=== PATIENT | male | born 1965 | race African-American/Black ===

== ENCOUNTER → 2019-07-24 | Outpatient (CLI) | payer OTHER ==
[2019-07-24 08:07] LABS: ABSOLUTE EOSINOPHILS # (AUTO) 0.2 10^3/uL (0.0-0.6); ABSOLUTE LYMPHOCYTES (AUTO) 1.5 10^3/uL (0.5-4.7); ABSOLUTE MONOCYTES (AUTO) 0.4 10^3/uL (0.1-1.4); ABSOLUTE NEUT (AUTO) 3.5 10^3/uL (1.7-8.2); BASOPHILS % (AUTO) 0.5 % (0-2); EOSINOPHILS % (AUTO) 4.1 % (0-6); HEMATOCRIT 42.7 % (37.9-51.0); HEMOGLOBIN 14.1 g/dL (13.5-17.0); LYMPHOCYTES % (AUTO) 25.9 % (13-45); MEAN CORPUSCULAR HEMOGLOBIN 27.8 pg (27.0-33.4); MEAN CORPUSCULAR HGB CONC 33.1 g/dL (32.0-36.0); MEAN CORPUSCULAR VOLUME 84 fl (80-97); MONOCYTES % (AUTO) 7.9 % (3-13); PLATELET COUNT 222 10^3/uL (150-450); RED BLOOD COUNT 5.08 10^6/uL (4.35-5.55); SEGMENTED NEUTROPHILS % (AUTO) 61.6 % (42-78); TOTAL CELLS COUNTED % (AUTO) 100 %; WHITE BLOOD COUNT 5.7 10^3/uL (4.0-10.5)
[2019-07-24 08:43] LABS: ALBUMIN 4.6 g/dL (3.5-5.0); ALKALINE PHOSPHATASE 68 U/L (38-126); ANION GAP 9 (5-19); ASPARTATE AMINO TRANSFERASE 22 U/L (17-59); BILIRUBIN,DIRECT 0.1 mg/dL (0.0-0.4); BILIRUBIN,TOTAL 1.3 mg/dL (0.2-1.3); BLOOD UREA NITROGEN 14 mg/dL (7-20); CARBON DIOXIDE 30 mmol/L (22-30); CHLORIDE 103 mmol/L (98-107); CHOLESTEROL 202.44 mg/dL (0-200); DIRECT LDL 146 mg/dL (<100); GLUCOSE 99 mg/dL (75-110); POTASSIUM 4.7 mmol/L (3.6-5.0); TOTAL PROTEIN 8.3 g/dL (6.3-8.2); TRIGLYCERIDES 112 mg/dL (<150); URIC ACID 6.3 mg/dL (3.5-8.5)
== END ==
LOC: CCC 07:11
DX: Z00.00 Encounter for general adult medical examination without abnormal findings (principal)
CPT/HCPCS: 36415; 80053; 80061; 83036; 84153; 84550; 85025

== ENCOUNTER 2020-07-14 17:53 | Emergency (ER) | payer OTHER ==
[2020-07-14 18:23] VITALS: BP 157/74
--- NOTE | 2020-07-14 18:27 | ER Document Report ---
ED Medical Screen (RME) - General Chief Complaint: Chest Pain > 30 Stated Complaint: chest pain Time Seen by Provider: 07/14/20 18:22 Primary Care Provider: SEEMA ELDRIDGE [Primary Care Provider] - Follow up as needed Mode of Arrival: Ambulatory Information source: Patient Notes: 55-year-old male presented to ED for complaint of chest pain that started on 10 July. He stated it lasted until Monday which was 4 days. He states on June 23 he got started on atorvastatin and he took that until Monday night. He did not take any or Monday and then his pain stopped on Monday. He states he called the clinic where he got the medications and they told him he needed to come to the emergency room and have his chest pain evaluated. They did tell him he should have come in that day to be evaluated. Patient is alert oriented respirations regular nonlabored speaking in full sentences at this time. I have greeted and performed a rapid initial assessment of this patient. A comprehensive ED assessment and evaluation of the patient, analysis of test results and completion of medical decision making process will be conducted by an additional ED providers. TRAVEL OUTSIDE OF THE [place] IN LAST 30 DAYS: No Physical Exam - Vital signs Vitals: Temp Pulse Resp BP Pulse Ox 98.4 F 70 16 157/74 H 98 07/14/20 18:22 07/14/20 18:22 07/14/20 18:22 07/14/20 18:22 07/14/20 18:22 Course - Vital Signs Vital signs: Temp Pulse Resp BP Pulse Ox 98.4 F 70 16 157/74 H 98 07/14/20 18:22 07/14/20 18:22 07/14/20 18:22 07/14/20 18:22 07/14/20 18:22 Doctor's Discharge - Discharge Referrals: SEEMA ELDRIDGE [Primary Care Provider] - Follow up as needed
--- NOTE | 2020-07-14 19:08 | RADIOLOGY REPORT (SQ) ---
EXAM DESCRIPTION: CHEST 2 VIEWS IMAGES COMPLETED DATE/TIME: 07/14/2020 6:57 pm REASON FOR STUDY: chest pain COMPARISON: None. EXAM PARAMETERS: NUMBER OF VIEWS: two views TECHNIQUE: Digital Frontal and Lateral radiographic views of the chest acquired. RADIATION DOSE: NA LIMITATIONS: none FINDINGS: LUNGS AND PLEURA: No opacities, masses or pneumothorax. No pleural effusion. MEDIASTINUM AND HILAR STRUCTURES: No masses or contour abnormalities. HEART AND VASCULAR STRUCTURES: Heart normal size. No evidence for failure. BONES: No acute findings. HARDWARE: None in the chest. OTHER: No other significant finding. IMPRESSION: 1. NO ACUTE RADIOGRAPHIC FINDING IN THE CHEST. TECHNICAL DOCUMENTATION: JOB ID: [id number] 2010 [employer]- All Rights Reserved Reading location - IP/workstation name: [email or web address]
[2020-07-14 19:21] LABS: ABSOLUTE EOSINOPHILS # (AUTO) 0.2 10^3/uL (0.0-0.6); ABSOLUTE LYMPHOCYTES (AUTO) 2.4 10^3/uL (0.5-4.7); ABSOLUTE MONOCYTES (AUTO) 0.6 10^3/uL (0.1-1.4); ABSOLUTE NEUT (AUTO) 4.7 10^3/uL (1.7-8.2); BASOPHILS % (AUTO) 0.3 % (0-2); EOSINOPHILS % (AUTO) 2.8 % (0-6); HEMOGLOBIN 13.2 g/dL (13.5-17.0); LYMPHOCYTES % (AUTO) 30.4 % (13-45); MEAN CORPUSCULAR HEMOGLOBIN 27.9 pg (27.0-33.4); MEAN CORPUSCULAR HGB CONC 33.1 g/dL (32.0-36.0); MEAN CORPUSCULAR VOLUME 84 fl (80-97); MONOCYTES % (AUTO) 7.1 % (3-13); PLATELET COUNT 244 10^3/uL (150-450); RED BLOOD COUNT 4.75 10^6/uL (4.35-5.55); SEGMENTED NEUTROPHILS % (AUTO) 59.4 % (42-78); TOTAL CELLS COUNTED % (AUTO) 100 %
[2020-07-14 19:36] LABS: ALBUMIN 4.6 g/dL (3.5-5.0); ALKALINE PHOSPHATASE 73 U/L (38-126); ANION GAP 9 (5-19); ASPARTATE AMINO TRANSFERASE 28 U/L (17-59); BILIRUBIN,DIRECT 0.1 mg/dL (0.0-0.4); BILIRUBIN,TOTAL 0.8 mg/dL (0.2-1.3); BLOOD UREA NITROGEN 19 mg/dL (7-20); CALCIUM 9.9 mg/dL (8.4-10.2); CARBON DIOXIDE 28 mmol/L (22-30); CHLORIDE 105 mmol/L (98-107); GLUCOSE 96 mg/dL (75-110); TOTAL PROTEIN 8.3 g/dL (6.3-8.2)
--- NOTE | 2020-07-15 01:20 | ER Document Report ---
ED General - General Chief Complaint: Chest Pain Stated Complaint: chest pain Time Seen by Provider: 07/14/20 18:22 Primary Care Provider: [facility] [Primary Care Provider] - Follow up as needed Mode of Arrival: Ambulatory Notes: 55-year-old male with hypertension hyperlipidemia presents with episodic chest pain last week that resolved 3 days ago. Patient says that for approximately 2 days he had intermittent left-sided nonradiating pressure-like chest pain associated with shortness of breath that lasted for few minutes to few hours and then resolved with intervention. Happened few times, thinks first time he was working outside. Has had absolutely no symptoms since Monday. Attempted to contact his clinic on Monday but did not get through till day of presentation a nd was told to go to ED. Patient denies any prior episodes, cardiac history, prior cardiac work-up, lower extremity edema, fever, cough, hemoptysis, DVT/PE/hypercoagulability history, drug use TRAVEL OUTSIDE OF THE [place] IN LAST 30 DAYS: No - Related Data Allergies/Adverse Reactions: prochlorperazine [From Compazine] Allergy (Verified 07/15/20 00:13) Past Medical History - General Information source: Patient - Social History Smoking Status: Never Smoker Frequency of alcohol use: Occasional Drug Abuse: None Family History: Reviewed & Not Pertinent Review of Systems - Review of Systems Notes: REVIEW OF SYSTEMS: CONSTITUTIONAL : Denies fever, chills, or sweats. EENT: Denies recent cold/sinus symptoms, denies throat pain CARDIOVASCULAR: - chest pain, -MARY RESPIRATORY: Denies cough, denies shortness of breath. GASTROINTESTINAL: Denies abdominal pain, nausea/vomiting. GENITOURINARY: Denies difficulty urinating, painful urination. FEMALE GENITOURINARY: Denies abnormal vaginal bleeding, vaginal discharge. MUSCULOSKELETAL: Denies neck pain, back pain. SKIN: Denies rash or skin lesions. HEMATOLOGIC : Denies easy bruising or bleeding. LYMPHATIC: Denies swollen, enlarged glands. NEUROLOGICAL: Denies headache, denies change in gait. PSYCHIATRIC: Denies anxiety or stress or depression. Physical Exam - Vital signs Vitals: Temp Pulse Resp BP Pulse Ox 98.4 F 70 16 157/74 H 98 07/14/20 18:22 07/14/20 18:22 07/14/20 18:22 07/14/20 18:22 07/14/20 18:22 - Notes Notes: PHYSICAL EXAMINATION: GENERAL: Very well-appearing middle-aged man appearing younger than stated age without any visible signs of discomfort and in no acute distress. HEAD: Atraumatic, normocephalic. EYES: Pupils equal round and appropriate constriction, sclera anicteric, conjunctiva are normal. ENT: nares patent, moist mucous membranes. NECK: Normal range of motion, supple without lymphadenopathy LUNGS: Breath sounds clear to auscultation bilaterally and equal. No wheezes rales or rhonchi. HEART/CHEST: Regular rate and rhythm without murmurs, normal chest inspection, no tenderness or masses ABDOMEN: Soft, nontender, no guarding, no masses, no CVAT EXTREMITIES: Normal range of motion, no pitting or edema. No cyanosis. NEUROLOGICAL: Awake, alert, conversing appropriately, moves all extremities spontaneously. PSYCH: Normal mood, normal affect. SKIN: Warm, Dry, normal turgor, no rashes or lesions noted. Course - Re-evaluation Re-evalutation: 07/15/20 01:45 Symptoms concerning for possible cardiac etiology, however given that patient has been asymptomatic for past 3 days and has been exerting himself without any return of symptoms and current work-up is negative, no indication currently to admit for targeted testing. Patient's EKG without any signs of ischemia, negative troponin. Transient episodic and resolved chest pain that patient describes is not consistent with a PE presentation and given that patient is currently asymptomatic I am able to rule out clinically and no indication to rule out with testing at this time. I discussed patient with Dr. Rabago to make sure that patient will be able to obtain prompt outpatient follow-up as patient does not have any insurance. Dr. Rabago says that his office works out the scale with patient's and he took patient's name and date of and will have office call him today or tomorrow for follow-up this week. Patient is in agreement with this plan and feels comfortable with discharge and denies having any other questions or concerns. I gave patient extensive return to ED precautions which he demonstrated understanding of. Patient ready for discharge with close PCP and cardiology follow-up. - Vital Signs Vital signs: Temp Pulse Resp BP Pulse Ox 98.4 F 70 16 157/74 H 98 07/14/20 18:22 07/14/20 18:22 07/14/20 18:22 07/14/20 18:22 07/14/20 18:22 - Laboratory Result Diagrams: 07/14/20 19:04 07/14/20 19:04 Laboratory results interpreted by me: 07/14/20 07/14/20 19:04 19:04 Hgb 13.2 L Total Protein 8.3 H - EKG Interpretation by Me Additional EKG results interpreted by me: 07/15/20 01:19 Sinus rhythm first-degree AV block, no significant ST elevations or depressions, no significant T wave abnormalities, QTc 405 Discharge - Discharge Clinical Impression: Chest pain Qualifiers: Chest pain type: unspecified Qualified Code(s): R07.9 - Chest pain, unspecified Disposition: HOME, SELF-CARE Additional Instructions: It could be a problem with your heart that is causing your chest pain and it is extremely important that you follow-up closely with a furnace liner. Dr. Narcisa Rabago's office should be contacting you within the next day, but if you do not hear from them please call the office and tell them that you were seen in the emergency department and you are supposed to follow-up with Dr. Rabago this week. If you have any return of symptoms return to the emergency department immediately. If you have any worsening symptoms, trouble breathing, dizziness, fainting, or any other worsening or alarming symptoms also return to the emergency department immediately. Follow-up with your primary doctor within 1 week. Referrals: NARCISA RABAGO MD [ACTIVE STAFF] - Follow up tomorrow [facility] [Primary Care Provider] - Follow up in 3-5 days
--- NOTE | 2020-07-15 07:31 | EKG REPORT ---
SEVERITY:- ABNORMAL ECG - SINUS RHYTHM FIRST DEGREE AV BLOCK : Confirmed by: Jayro Rogers MD 15-Jul-2020 07:30:26
== END 2020-07-15 02:50 | disposition home or self-care (01) ==
LOC: ER 17:53
DX: R07.9 Chest pain, unspecified (principal); R06.02 Shortness of breath; I10 Essential (primary) hypertension; E78.5 Hyperlipidemia, unspecified; Z88.8 Allergy status to other drugs, medicaments and biological substances
CPT/HCPCS: 36415; 71046; 80053; 83735; 84484; 85025; 93005; 93010; 99285

== ENCOUNTER → 2020-08-24 | Outpatient (CLI) | payer OTHER ==
--- NOTE | 2020-08-25 08:34 | DRAGON STRESS TEST REPORT ---
Exercise stress test Date: 08/24/2020 Referring physician: Dr. Sethi Performing physician: Benjy Rios MD Indication: Chest pain Clinical history 55-year-old male with medical history significant for systemic hypertension dyslipidemia and obesity who has had recurrent episodes of chest pain. We decided to proceed with exercise stress test Procedure The patient presented to the stress lab. The patient exercised on the treadmill according to Jonel protocol for a total of 10 minutes and 27 seconds achieving a maximum heart rate of 157 bpm which was 95% of maximum predicted of 164 bpm. The maximum workload was 13.4 METS. The presenting EKG showed sinus bradycardia with first-degree AV block at 55 bpm. The initial blood pressure was 143/81 mmHg. Upon exercise the heart rate gypsy to a maximum of 157 beats per minute and the blood pressure gypsy to a maximum of 202/59mmHg. The patient had appropriate increment in heart rate and hypertensive response off the blood pressure to exercise. The exercise EKG was negative for myocardial ischemia. The recovery EKG did not reveal any evidence of myocardial ischemia. The patient tolerated the exercise well and did not report chest pain or dyspnea. The test was terminated on account of patient fatigue and patient having achieved target heart rate. The patient's EKG and vital signs were monitored throughout the procedure. Conclusion The exercise EKG is negative for myocardial ischemia. Excellent exercise tolerance. Normal heart rate and blood pressure response to exercise. The patient will be given an appointment to discuss these test results. [facility]
== END ==
LOC: SP 08:34
PROVIDERS: ATTEND Internal Medicine
DX: I10 Essential (primary) hypertension (principal); R07.9 Chest pain, unspecified; E78.5 Hyperlipidemia, unspecified; I25.9 Chronic ischemic heart disease, unspecified; E66.9 Obesity, unspecified
CPT/HCPCS: 93017